=== PATIENT | male | born 1975 | race Caucasian/White ===

== ENCOUNTER 2017-02-15 18:05 | Emergency (ER) | payer SELFPAY ==
[2017-02-15 18:57] LABS: APPEARANCE HAZY (CLEAR); BILIRUBIN NEGATIVE (NEGATIVE); COLOR YELLOW (YELLOW); GLUCOSE NEGATIVE (NEGATIVE); KETONE NEGATIVE (NEGATIVE); NITRITE NEGATIVE (NEGATIVE); PROTEIN TRACE mg/dL (NEGATIVE); SPECIFIC GRAVITY 1.015 (1.005-1.020); UROBILINOGEN NORMAL (NORMAL)
[2017-02-15 18:58] LABS: BACTERIA MANY /hpf (NONE SEEN); WHITE CELLS - URINE >50 /hpf (0-5)
[2017-02-15 20:40] LABS: BASOPHILS 0.4 % (0-2); EOSINOPHILS 2.4 % (0-7); HEMATOCRIT 47.2 % (42.0-54.0); HEMOGLOBIN 15.9 g/dL (13.5-17.5); LYMPHOCYTES 18.8 % (15-50); MCHC 33.7 g/dL (31.0-37.0); MONOCYTES 7.2 % (2-11); NEUTROPHILS 70.2 % (40-80); PLATELET COUNT 220 10x3/uL (130-400); RBC 5.13 10x6/uL (4.20-6.10); RDW 12.4 % (11.5-14.5); WBC 12.2 10x3/uL (4.8-10.8)
[2017-02-15 21:14] LABS: ALBUMIN 3.8 g/dL (3.4-5.0); ALKALINE PHOSPHATASE 87 U/L (46-116); ALT (SGPT) 74 U/L (10-68); CALC OSMOLALITY 274 mosm/kg (275-300); CALCIUM 8.4 mg/dL (8.5-10.1); CARBON DIOXIDE 27.4 mmol/L (21.0-32.0); CHLORIDE - SERUM 101 mmol/L (98-107); GLUCOSE 103 mg/dL (74-106); POTASSIUM - SERUM 4.3 mmol/L (3.5-5.1); PROTEIN - SERUM 7.7 g/dL (6.4-8.2); SODIUM 137 mmol/L (136-145); UREA NITROGEN 16 mg/dL (7-18); eGFR NON AFRICAN AMERICAN 87 mL/min (90-120)
== END 2017-02-15 22:29 | disposition home or self-care (01) ==
LOC: D.ER 18:05
PROVIDERS: Emergency Medicine
DX: N39.0 Urinary tract infection, site not specified (principal); F17.200 Nicotine dependence, unspecified, uncomplicated

== ENCOUNTER 2017-09-16 21:26 | Emergency (ER) | payer MEDICAID | END 2017-09-16 23:39 | disposition home or self-care (01) | LOC: D.ER 21:26 | DX: S51.811A Laceration without foreign body of right forearm, initial encounter (principal); W25.XXXA Contact with sharp glass, initial encounter; Y93.89 Activity, other specified; Y92.019 Unspecified place in single-family (private) house as the place of occurrence of the external cause ==

== ENCOUNTER 2017-10-01 10:19 | Emergency (ER) | payer MEDICAID ==
[~2017-10-01] VITALS: Ht 172.7 cm; Wt 90.9 kg
[2017-10-01 10:26] VITALS: Ht 172.7 cm; Wt 90.9 kg
[2017-10-01 10:47] VITALS: BP 136/88
== END 2017-10-01 10:47 | disposition home or self-care (01) ==
LOC: D.ER 10:19
DX: S51.811D Laceration without foreign body of right forearm, subsequent encounter (principal); X58.XXXD Exposure to other specified factors, subsequent encounter; Z48.02 Encounter for removal of sutures

== ENCOUNTER 2017-11-30 14:10 | Emergency (ER) | payer MEDICAID ==
[~2017-11-30] VITALS: Ht 172.7 cm; Wt 85.9 kg
[2017-11-30 14:20] VITALS: BP 143/104; Ht 172.7 cm; Wt 85.9 kg
[2017-11-30] MEDS ORDERED: PREDNISONE50 MG PO (14:40)
== END 2017-11-30 15:20 | disposition home or self-care (01) ==
LOC: D.ER 14:10
DX: L23.7 Allergic contact dermatitis due to plants, except food (principal); K21.9 Gastro-esophageal reflux disease without esophagitis; F17.200 Nicotine dependence, unspecified, uncomplicated

== ENCOUNTER 2019-01-08 14:27 | Emergency (ER) | payer SELFPAY ==
[~2019-01-08] VITALS: Ht 172.7 cm; Wt 90.9 kg
[~2019-01-08 14:27] MED LIST: PREDNISONE50 MG PO
[2019-01-08 14:31] VITALS: BP 146/100; Ht 172.7 cm; Wt 90.9 kg
[2019-01-08] MEDS ORDERED: PREDNISONE20 MG PO (15:20)
[2019-01-08] MEDS ORDERED: AMOXICILLIN500 M1 PO (15:20)
== END 2019-01-08 15:51 | disposition home or self-care (01) ==
LOC: D.ER 14:27
DX: H66.91 Otitis media, unspecified, right ear (principal)